=== PATIENT | female | born 1950 | race Caucasian/White ===

== ENCOUNTER → 2018-03-22 | Outpatient (CLI) | payer BC, OTHER ==
[~2018-03-22] MED LIST: RIVA1TAB7 PO
--- NOTE | 2018-03-22 09:46 | DIAGNOSTIC IMAGING REPORT ---
L ANKLE MIN 3 VIEWS ROUTINE HISTORY: 67 years-old Female ANKLE SPRAIN acute left ankle pain status post trauma COMPARISON: None available TECHNIQUE: 3 views of the left ankle FINDINGS: Linear lucency with corticated margins is noted about the distal aspect of the lateral malleolus. Mild circumferential soft tissue swelling about the ankle. No acute fracture, dislocation or osteochondral defect. Mild tibiotalar osteoarthritis. Mild degenerative changes about the midfoot and subtalar joint. No large joint effusion. IMPRESSION: 1. Mild circumferential soft tissue swelling about the ankle without acute fracture or dislocation. 2. Subacute to chronic appearing nondisplaced fracture of the lateral malleolus. Correlate with patient history and point tenderness. The above report was generated using voice recognition software. It may contain grammatical, syntax or spelling errors. Electronically signed by: Quincy Teague M.D. 03/22/2018 9:44 AM Dictated Date/Time: 03/22/2018 9:43 AM
== END | disposition home or self-care (01) ==
LOC: C.RAD1850 09:26
PROVIDERS: ATTEND Family Medicine
DX: M25.572 Pain in left ankle and joints of left foot (principal); M79.89 Other specified soft tissue disorders